=== PATIENT | female | born 1960 | race Caucasian/White ===

== ENCOUNTER 2022-03-15 13:30 | Outpatient (CLI) | payer BC, SELFPAY ==
--- NOTE | 2022-03-15 14:00 | CRLHL7_ITS ---
For Patients: As a result of the Century Cures Act, medical imaging exams and procedure reports are released immediately into your electronic medical record. You may view this report before your referring provider. If you have questions, please contact your health care provider. BILATERAL SCREENING MAMMOGRAM WITH COMPUTER-AIDED DETECTION AND TOMOSYNTHESIS TECHNIQUE: CC and MLO views were obtained. These mammographic images have been obtained using full-field digital technique. These mammographic images were interpreted with the benefit of computer-aided detection. Breast Tomosynthesis was used in this interpretation. COMPARISON FILM: 08/24/20, 03/29/16, 08/21/13 FINDINGS: There are scattered areas of fibroglandular density IMPRESSION: There is no radiographic evidence for malignancy. ASSESSMENT: BI-RADS Category 1: Negative RECOMMENDATION: Routine screening mammogram in 1 year. A lay language report of this examination will be provided to the patient. Jori Joyce M.D. Diagnostic Radiologist [email or web address] VITALIY/Dictated by: Jori Joyce MD @ 03/16/2022 8:25:00 AM (Electronically Signed)
== END 2022-03-15 13:31 | disposition home or self-care (01) ==
LOC: MAMMO 13:31
PROVIDERS: Visit Provider Emergency Medicine
DX: Z12.31 Encounter for screening mammogram for malignant neoplasm of breast (principal)
CPT/HCPCS: 77063; 77067

== ENCOUNTER 2022-11-28 16:57 | Outpatient (CLI) | payer BC, SELFPAY | END 2022-11-28 16:58 | disposition home or self-care (01) | LOC: NFLDREF 12-01 15:10 | PROVIDERS: PCP Emergency Medicine; Referring Provider Emergency Medicine; Visit Provider Emergency Medicine | DX: Z01.419 Encounter for gynecological examination (general) (routine) without abnormal findings (principal); E78.5 Hyperlipidemia, unspecified; I10 Essential (primary) hypertension; R73.01 Impaired fasting glucose; Z12.4 Encounter for screening for malignant neoplasm of cervix | CPT/HCPCS: 80053; 80061 ==

== ENCOUNTER 2023-04-30 06:56 | Outpatient (CLI) | payer BC, SELFPAY ==
--- NOTE | 2023-04-30 08:24 | W.ANESCHARGE ---
Anesthesia Charges Start Date/Time Anesthesia Start Date: 04/30/23 Anesthesia Start Time: 08:07 Stop Date/Time Anesthesia Stop Date: 04/30/23 Anesthesia Stop Time: 08:22
== END 2023-04-30 06:57 | disposition home or self-care (01) ==
LOC: OP CLINIC 06:57
PROVIDERS: PCP Emergency Medicine; Visit Provider Surgery
DX: Z12.11 Encounter for screening for malignant neoplasm of colon (principal); K64.4 Residual hemorrhoidal skin tags
CPT/HCPCS: 00812; 45378; J2704

== ENCOUNTER 2024-03-03 08:10 | Outpatient (CLI) | payer BC, SELFPAY | END 2024-03-03 08:11 | disposition home or self-care (01) | LOC: NFLDREF 03-05 00:13 | PROVIDERS: PCP Emergency Medicine; Referring Provider Emergency Medicine; Visit Provider Emergency Medicine | DX: Z00.00 Encounter for general adult medical examination without abnormal findings (principal); E78.5 Hyperlipidemia, unspecified; I10 Essential (primary) hypertension; R73.01 Impaired fasting glucose | CPT/HCPCS: 80053; 80061 ==

== ENCOUNTER 2024-06-25 14:32 | Outpatient (CLI) | payer BC, SELFPAY ==
--- NOTE | 2024-06-25 14:40 | CRLHL7_ITS ---
For Patients: As a result of the Cures Act, medical imaging exams and procedure reports are released immediately into your electronic medical record. You may view this report before your referring provider. If you have questions, please contact your health care provider. BILATERAL SCREENING MAMMOGRAM WITH COMPUTER-AIDED DETECTION AND TOMOSYNTHESIS TECHNIQUE: CC and MLO views were obtained. These mammographic images have been obtained using full-field digital technique. These mammographic images were interpreted with the benefit of computer-aided detection. Breast Tomosynthesis was used in this interpretation. COMPARISON FILM: 03/15/22, 08/24/20, 03/29/16. FINDINGS: There are scattered areas of fibroglandular density IMPRESSION: There is no radiographic evidence for malignancy. ASSESSMENT: BI-RADS Category 1: Negative RECOMMENDATION: Routine screening mammogram in 1 year. A lay language report of this examination will be provided to the patient. Jori Joyce M.D. Diagnostic Radiologist [email or web address] THU/major / bM/Dictated by: Jori Joyce MD @ 06/27/2024 11:42:00 AM (Electronically Signed)
== END 2024-06-25 14:33 | disposition home or self-care (01) ==
LOC: MAMMO 14:33
PROVIDERS: PCP Emergency Medicine; Visit Provider Emergency Medicine
DX: Z12.31 Encounter for screening mammogram for malignant neoplasm of breast (principal)
CPT/HCPCS: 77063; 77067

== ENCOUNTER 2025-04-28 08:00 | Outpatient (CLI) | payer BC, SELFPAY | END 2025-04-28 08:01 | disposition home or self-care (01) | LOC: NFLDREF 05-03 04:05 | PROVIDERS: PCP Emergency Medicine; Referring Provider Emergency Medicine; Visit Provider Family Medicine | DX: E78.2 Mixed hyperlipidemia (principal); R73.01 Impaired fasting glucose | CPT/HCPCS: 80048; 80061 ==